=== PATIENT | female | born 1975 | race Caucasian/White ===

== ENCOUNTER 2017-08-04 08:59 | Emergency (ER) | payer BC, SELFPAY ==
[2017-08-04 09:07] VITALS: BP 136/88; PULSE 89; RESP 16; TEMP 36.6; O2SAT 98; BMI 28.3
--- NOTE | 2017-08-04 09:11 | XR_ITS ---
XR wrist LT 2V HISTORY: Posterior minute pain ITS.REASON: fall ORDERING PHYSICIAN: Tommy Wasserman MD PATIENT AGE: 41 years COMPARISON: None FINDINGS: No fracture or dislocation. No lytic or blastic change. There is normal mineralization.. The joint spaces are well-preserved. No significant degenerative/arthritic changes. No erosive changes evident.. IMPRESSION: Negative wrist
--- NOTE | 2017-08-04 09:12 | XR_ITS ---
XR hand LT 2V HISTORY: Posttraumatic pain ITS.REASON: fall ORDERING PHYSICIAN: Tommy Wasserman MD PATIENT AGE: 41 years COMPARISON: None FINDINGS: No fracture or dislocation. No lytic or blastic change. There is normal mineralization.. The joint spaces are well-preserved. No significant degenerative/arthritic changes. No erosive changes evident.. IMPRESSION: Negative, no acute finding
[2017-08-04 09:21] VITALS: BP 136/88; PULSE 104; RESP 16; TEMP 36.6; O2SAT 98; BMI 28.3
--- NOTE | 2017-08-04 09:53 | HMH.EDUTC ---
[facility] [place] Disposition Clinical Impression: Wrist pain Qualifiers: Laterality: left Qualified Code(s): M25.532 - Pain in left wrist Disposition: Home, Self-Care Condition on Discharge: Good Instructions: DI for Chronic Pain -- Adult, DI for Wrist Sprain, Wrist Sprain Additional Instructions: *RICE, Rest the extremity, Ice 15-20 minutes 3-4 times daily, Compress- wear the beny wrap as discussed as much as possible to help reduce swelling and pain, Elevate the extremity when at rest *Beny wrap is for support and help control swelling, use it except in the shower. Be sure that is not to tight but not to loose either *Elevate when resting *Ibuprofen 600-800mg every 6-8 hours as needed for pain an inflammation. If need something more can take Tylenol in between doses of Ibuprofen to help Immediately follow up for new or worsening of symptoms, or no noticeable improvement over the next 3-5 days Referrals: Kuldeep Holt MD [Staff Physician] - Ramy Rodrigez MD [Staff Physician] - Time of Disposition: 10:01 Medical Decision Making - Medical Records Medical records reviewed: Yes: I reviewed the patient's medical records. Vital Signs: 08/04/17 09:07 08/04/17 09:21 Temperature 97.9 F 97.9 F Temperature Source Oral Temporal Artery Scan Pulse Rate [Right Brachial] 89 104 H Respiratory Rate 16 16 Blood Pressure [Right Arm] 136/88 136/88 Blood Pressure Mean [Right Arm] 104 104 Blood Pressure Source [Right Arm] Automatic Cuff Manual Cuff/ Doppler Blood Pressure Position [Right Arm] Sitting Sitting 02 Sat by Pulse Oximetry 98 98 Oxygen Delivery Method Room Air Room Air - Syed Inquiry Pt receiving controlled substance: No Syed was queried for this patient: No [facility] [place] HPI - General Stated complaint: AO [id number] left hand and wrist Mode of Arrival: Family Vehicle Source of Information: Patient Limitations: No Limitations Description of Symptoms (Recalled from Triage Doc. by RN): pt states she fell on left hand while walking her dog outside. HEENT Symptoms (Recalled from RN notes): No Resp Symptoms (Recalled from RN notes): No Skin Symptoms (Recalled from RN notes): No MS Symptoms (Recalled from RN notes): Yes (fell on left hand) Functional Status (Recalled from RN notes): na - History of Present Illness Provider Complaint: State that she was taking her two dogs out on leash when one of the dogs pulled and she lost her balance and fell on the steps and she threw out her left hand to catch herself States that she is now haiving pain in her left wrist and thumb area States that she didn't hurt herself anywhere else just her left hand and wrist - Related Data Home Medications Medication Instructions Recorded Confirmed No Known Home Medications [No 08/04/17 08/04/17 Known Home Medications] Allergies Allergy/AdvReac Type Severity Reaction Status Date / Time No Known Allergies Allergy Verified 08/04/17 09:11 - Worker's Comp Is this a Worker's Comp case?: No [facility] History I have reviewed the patient's past medical history: Yes Medical History: Denies:: Cancer, Diabetes Mellitus Type 1, Diabetes Mellitus Type 2, MRSA Amputation: No Fractures: Yes (r collar bone) - Social History Educational Level: Completed High School Smoking Status: Never smoker Alcohol Intake: never - Psychiatric History Expresses thoughts of harming self/others: None Suicide Plan Description: No Plan ROS Obtained: Yes All systems reviewed & no additional complaints Physical Exam - General General appearance: alert, in no apparent distress - Respiratory Respiratory exam: Present: normal lung sounds bilaterally. Absent: respiratory distress - Cardiovascular Cardiovascular exam: Present: regular rate, normal rhythm. Absent: JVD - Extremities Exam Extremities exam: Present: normal inspection, tenderness, normal capillary refill. Absent: calf tenderness - Expanded Upper Extremity Exam Left Forearm/Wr
--- NOTE | 2017-08-04 09:56 | ED_ITS ---
[facility] [place] Disposition Clinical Impression: Wrist pain Qualifiers: Laterality: left Qualified Code(s): M25.532 - Pain in left wrist Disposition: Home, Self-Care Condition on Discharge: Good Instructions: DI for Chronic Pain -- Adult, DI for Wrist Sprain, Wrist Sprain Additional Instructions: *RICE, Rest the extremity, Ice 15-20 minutes 3-4 times daily, Compress- wear the beny wrap as discussed as much as possible to help reduce swelling and pain, Elevate the extremity when at rest *Beny wrap is for support and help control swelling, use it except in the shower. Be sure that is not to tight but not to loose either *Elevate when resting *Ibuprofen 600-800mg every 6-8 hours as needed for pain an inflammation. If need something more can take Tylenol in between doses of Ibuprofen to help Immediately follow up for new or worsening of symptoms, or no noticeable improvement over the next 3-5 days Referrals: Kuldeep Holt MD [Staff Physician] - Ramy Rodrigez MD [Staff Physician] - Time of Disposition: 10:01 Medical Decision Making - Medical Records Medical records reviewed: Yes: I reviewed the patient's medical records. Vital Signs: 08/04/17 09:07 08/04/17 09:21 Temperature 97.9 F 97.9 F Temperature Source Oral Temporal Artery Scan Pulse Rate [Right Brachial] 89 104 H Respiratory Rate 16 16 Blood Pressure [Right Arm] 136/88 136/88 Blood Pressure Mean [Right Arm] 104 104 Blood Pressure Source [Right Arm] Automatic Cuff Manual Cuff/ Doppler Blood Pressure Position [Right Arm] Sitting Sitting 02 Sat by Pulse Oximetry 98 98 Oxygen Delivery Method Room Air Room Air - Syed Inquiry Pt receiving controlled substance: No Syed was queried for this patient: No [facility] [place] HPI - General Stated complaint: AO [id number] left hand and wrist Mode of Arrival: Family Vehicle Source of Information: Patient Limitations: No Limitations Description of Symptoms (Recalled from Triage Doc. by RN): pt states she fell on left hand while walking her dog outside. HEENT Symptoms (Recalled from RN notes): No Resp Symptoms (Recalled from RN notes): No Skin Symptoms (Recalled from RN notes): No MS Symptoms (Recalled from RN notes): Yes (fell on left hand) Functional Status (Recalled from RN notes): na - History of Present Illness Provider Complaint: State that she was taking her two dogs out on leash when one of the dogs pulled and she lost her balance and fell on the steps and she threw out her left hand to catch herself States that she is now haiving pain in her left wrist and thumb area States that she didn't hurt herself anywhere else just her left hand and wrist - Related Data Home Medications Medication Instructions Recorded Confirmed No Known Home Medications [No 08/04/17 08/04/17 Known Home Medications] Allergies Allergy/AdvReac Type Severity Reaction Status Date / Time No Known Allergies Allergy Verified 08/04/17 09:11 - Worker's Comp Is this a Worker's Comp case?: No [facility] History I have reviewed the patient's past medical history: Yes Medical History: Denies:: Cancer, Diabetes Mellitus Type 1, Diabetes Mellitus Type 2, MRSA Amputation: No Fractures: Yes (r collar bone) - Social History Educational Level: Completed High School Smoking Status: Never smoker Alcohol Intake: never - Psychiatric History Expresses thoughts of harming self
[2017-08-04 10:07] VITALS: BP 127/77; PULSE 78; RESP 20; TEMP 36.7; O2SAT 99
== END 2017-08-04 10:08 | disposition home or self-care (01) ==
PROVIDERS: Emergency Provider Nurse Practitioner
DX: M25.532 Pain in left wrist (principal); W01.0XXA Fall on same level from slipping, tripping and stumbling without subsequent striking against object, initial encounter
CPT/HCPCS: 73100; 73120; 99202

== ENCOUNTER 2020-02-04 13:29 | Emergency (ER) | payer BC, SELFPAY ==
--- NOTE | 2020-02-04 13:54 | HMH.EDUTC ---
[facility] [place] Disposition Clinical Impression: Sinusitis Qualifiers: Sinusitis location: unspecified location Chronicity: acute Recurrence: non-recurrent Qualified Code(s): J01.90 - Acute sinusitis, unspecified Disposition: Home, Self-Care Condition on Discharge: Good Instructions: Sinusitis, DI for Sinusitis Additional Instructions: Drink plenty of fluids. Take tylenol for pain or fever. Take the medications as directed. Follow up with your regular doctor. GO TO THE ER FOR ANY WORSENING SYMPTOMS FOLLOW THE DIRECTIONS ON THE COVID-19 HAND OUT THAT WE GAVE YOU REGARDING SELF-ISOLATION UNTIL YOU KNOW YOUR COVID-19 RESULTS Prescriptions: Brompheniramine/Pseudoephed/Dm [Bromfed Dm Cough Syrup] 5 ml PO Q6HP PRN #240 syrup PRN Reason: Cough Transmission Status: Received by [facility] Amoxicillin/Potassium Clav [Augmentin 875-125 Tablet] 1 tab PO Q12H 10 Days #20 tab Transmission Status: Received by [facility] methylPREDNISolone [Medrol] 4 mg PO DIRECTED 6 Days #21 tab.ds.pk Transmission Status: Received by [facility] Referrals: Provider,Referral, [Primary Care Provider] - Forms: Work/School Release Time of Disposition: 14:09 Medical Decision Making - Medical Records Medical records reviewed: No: I reviewed the patient's medical records. - Syed Inquiry Pt receiving controlled substance: No Vital Signs: 02/04/20 13:57 02/04/20 14:12 Temperature 98.3 F 98.3 F Temperature Source Oral Pulse Rate 71 Pulse Rate [Right Brachial] 71 Respiratory Rate 20 20 Blood Pressure 142/97 H Blood Pressure [Right Arm] 142/97 H Blood Pressure Mean [Right Arm] 112 Blood Pressure Source [Right Arm] Automatic Cuff Blood Pressure Position [Right Arm] Sitting 02 Sat by Pulse Oximetry 99 Oxygen Delivery Method Room Air - Lab Data Lab Results 02/04/20 13:44: Influenza Type A Ag Negative, Influenza Type B Ag Negative 02/04/20 13:44: Strep Scn Rapid Clinic Negative 02/04/20 13:47: COVID-19 PCR Not detected Orders (Tests/Meds): ORDERS Category Date Time Status Strep Screen Confirmation Stat Micro 02/04/20 13:44 Received [facility] [place] HPI - General Stated complaint: fever, congestion, cough Time Seen by Provider: 02/04/20 13:54 - History of Present Illness Provider Complaint: She c/o 3 days of worsening sinus congestion. She started running a fever last night. She has a history of having sinus infections pretty frequently. - Related Data Home Medications Medication Instructions Recorded Confirmed Fexofenadine HCl [Delma 180 mg PO DAILY 02/04/20 02/04/20 Allergy] Fluticasone Propionate [Flonase 2 spr NS DAILY 02/04/20 02/04/20 50mcg nasal spray 16gm] Previous Rx's Medication Instructions Recorded Amoxicillin/Potassium Clav 1 tab PO Q12H 10 Days #20 tab 02/04/20 [Augmentin 875-125 Tablet] Brompheniramine/Pseudoephed/Dm 5 ml PO Q6HP PRN #240 syrup 02/04/20 [Bromfed Dm Cough Syrup] methylPREDNISolone [Medrol] 4 mg PO DIRECTED 6 Days #21 02/04/20 tab.ds.pk Allergies Allergy/AdvReac Type Severity Reaction Status Date / Time No Known Allergies Allergy Verified 08/04/17 09:11 [facility] History - Hepatitis A Screen Attestation statement:: This patient has been screened for Hepatitis A risk factors. I have reviewed the patient's past medical history: Yes Medical History: Denies:: Cancer, Diabetes Mellitus Type 1, Diabetes Mellitus Type 2, MRSA Amputation: No Fractures: Yes (r collar bone) - Social History Smoking Status: Never smoker Alcohol Intake: never Occupational Status: other ROS Obtained: Yes All systems reviewed & no additional complaints - Constitutional Constitutional: Reports chills, Denies fever(s), Reports poor appetite, Reports malaise - Eyes Eyes: Denies eye discharge - ENT Ears, Nose, Mouth, and Throat: Reports as per HPI Physical Exam - General General appearance: alert, in n
[2020-02-04 13:57] VITALS: BP 142/97; PULSE 71; RESP 20; TEMP 36.8; O2SAT 99; BMI 29.1
[2020-02-04 14:12] VITALS: BP 142/97; PULSE 71; RESP 20; TEMP 36.8; O2SAT 99
[2020-02-04 14:25] LABS: UTC Influenza A Antigen Negative (Negative); UTC Strep Screen (Rapid) Negative (Negative)
[2020-02-04 14:26] LABS: UTC Influenza B Antigen Negative (Negative)
[2020-02-05 17:27] LABS: Covid-19 Nasal PCR Sendout UK Not Detected
== END 2020-02-04 14:14 | disposition home or self-care (01) ==
PROVIDERS: Emergency Provider Nurse Practitioner Family
DX: J01.90 Acute sinusitis, unspecified (principal)
CPT/HCPCS: 87804; 87880; 99202; U0003; U0004

== ENCOUNTER 2021-02-04 05:52 | Emergency (ER) | payer BC, SELFPAY ==
[2021-02-04 06:04] VITALS: BP 175/120; PULSE 111; RESP 25; TEMP 36.6; O2SAT 100; BMI 30.7
--- NOTE | 2021-02-04 06:10 | ECG_ITS ---
APPROVED REPORT Exam: Resting ECG HR:94 bpm ECG Measurements Heart Rate 94 AXES UT 138 P 64 QRSd 66 QRS 13 QT 350 T 55 QTc 437 Conclusion Normal sinus rhythm Late R wave progression Abnormal ECG Electronically signed by : Hari Rousseau MD 02/05/2021 12:08:26
[2021-02-04 06:15] VITALS: BMI 27.3
--- NOTE | 2021-02-04 06:16 | CT_ITS ---
PROCEDURE INFORMATION: Exam: CTA Chest With Contrast Exam date and time: 02/04/2021 6:16 AM Age: 45 years old Clinical indication: Chest pressure and left-sided; Patient HX: Sudden onset lt sided chest pain radiating from back to chest; Additional info: Back pain radiating into chest TECHNIQUE: Imaging protocol: Computed tomographic angiography of the chest with contrast. 3D rendering (Not supervised by radiologist): MIP and/or 3D reconstructed images were created by the technologist. Radiation optimization: All CT scans at this facility use at least one of these dose optimization techniques: automated exposure control; mA and/or kV adjustment per patient size (includes targeted exams where dose is matched to clinical indication); or iterative reconstruction. Contrast material: ISO 370; Contrast volume: 70 ml; Contrast route: INTRAVENOUS (IV); COMPARISON: CR XR CHEST PORTABLE 02/04/2021 6:17 AM FINDINGS: Pulmonary arteries: Normal. No pulmonary emboli. Aorta: Unremarkable. No aortic aneurysm. No aortic dissection. Lungs: There are some patchy ground-glass opacities in the both lower lobes. There is no evidence of consolidation. Pleural spaces: There is no significant effusion or pneumothorax. Heart: Unremarkable. No cardiomegaly. No pericardial effusion. Lymph nodes: Unremarkable. No enlarged lymph nodes. Bones/joints: Unremarkable. No acute fracture. Soft tissues: Unremarkable. IMPRESSION: 1. No evidence of pulmonary thromboembolic disease. 2. Ground-glass opacities in both lower lobes as described. This may be seen with atypical pneumonia or with pulmonary edema. Clinical correlation is recommended.
--- NOTE | 2021-02-04 06:16 | XR_ITS ---
PROCEDURE INFORMATION: Exam: XR Chest Exam date and time: 02/04/2021 6:16 AM Age: 45 years old Clinical indication: Pain; Chest pressure; Additional info: Cp TECHNIQUE: Imaging protocol: XR of the chest. Views: 1 view. COMPARISON: No relevant prior studies available. FINDINGS: Lungs: No focal consolidation. Pleural spaces: No pleural effusion. No pneumothorax. Heart/Mediastinum: Unremarkable cardiomediastinal silhouette. Bones/joints: No acute osseous findings. IMPRESSION: No focal consolidation.
--- NOTE | 2021-02-04 06:21 | HMH.EDCP ---
ED Disposition Clinical Impression: Atypical chest pain Disposition: Home, Self-Care Condition on Discharge: Good Instructions: DI for Atypical Chest Pain Additional Instructions: use meds and see pcp for follow up Prescriptions: predniSONE [Prednisone 20mg Tab] 20 mg PO BID #10 tab Transmission Status: Pending to [facility] Ketorolac Tromethamine [Toradol 10mg tablet] 10 mg PO Q6HP PRN #10 tab MDD 40mg/day PRN Reason: Moderate To Severe Pain Transmission Status: Pending to [facility] Referrals: Geronimo Neves MD [Primary Care Provider] - - Critical Care Critical Care Time: No Attestation: On 02/04/21, the high probability of a clinically significant, sudden or life threatening deterioration of the following system(s) required my full and direct attention, intervention and personal management. The time I documented below is in addition to time spent performing reported procedures but includes the following listed in this critical care notation. Medical Decision Making - Medical Records Medical records reviewed: Yes: I reviewed the patient's medical records. - Syed Inquiry Pt receiving controlled substance: No Vital Signs: 02/04/21 06:04 Temperature 97.9 F Temperature Source Oral Pulse Rate [Right Brachial] 111 H Respiratory Rate 25 H Blood Pressure [Right Arm] 175/120 H Blood Pressure Mean [Right Arm] 138 Blood Pressure Source [Right Arm] Automatic Cuff Blood Pressure Position [Right Arm] Sitting 02 Sat by Pulse Oximetry 100 Oxygen Delivery Method Room Air - Lab Data Lab results reviewed: Yes: I reviewed the patient's lab results. Lab Results 02/04/21 06:06: WBC 7.4, RBC 5.02, Hgb 14.6, Hct 46.6, MCV 92.7, MCH 29.1, MCHC 31.3 L, RDW 13.3, Plt Count 273, MPV 9.0, Neut % (Auto) 70.6, Lymph % (Auto) 23.9, Pettis % (Auto) 4.3, Eos % (Auto) 0.9, Baso % (Auto) 0.4, Neut # (Auto) 5.2, Lymph # (Auto) 1.8, Pettis # (Auto) 0.3, Eos # (Auto) 0.1, Baso # (Auto) 0.0 02/04/21 06:06: Sodium 141, Potassium 3.7, Chloride 105, Carbon Dioxide 25, Anion Gap 14.7, BUN 7, Creatinine 0.80, Estimated Creat Clear 117, Estimated GFR 78, Est GFR ( Amer) 95, Glucose 125 H, Calcium 9.2, Total Bilirubin 0.2, AST 27, ALT 18, Alkaline Phosphatase 112, Troponin I < 0.01, C-Reactive Protein 6.3 H, Total Protein 7.9, Albumin 4.4, Globulin 3.5 H, Albumin/Globulin Ratio 1.3 02/04/21 06:06: ESR 15 02/04/21 06:06: Lipase 27, Procalcitonin 0.047 02/04/21 06:06: Serum HCG, Qual Negative 02/04/21 07:25: SARS-CoV-2 (PCR) Not detected, Influenza A Untype (PCR) Not detected, Influenza Type B (PCR) Not detected Result diagrams: 02/04/21 06:06 02/04/21 06:06 Orders (Tests/Meds): ED MEDICATIONS Discontinued Medications Generic Name Dose Route Start Last Admin Trade Name Freq PRN Reason Stop Dose Admin Iopamidol 70 ml 02/04/21 06:53 02/04/21 06:54 Iopamidol-370 (76%);100ml Bottle IV 02/04/21 06:54 70 ml ONCE ONE Administration Ketorolac Tromethamine 30 mg 02/04/21 08:25 Ketorolac 30mg/Ml Vial IV 02/04/21 08:26 ONCE ONE Methylprednisolone Sodium Succinate 125 mg 02/04/21 08:25 Methylprednisolone Sod Succ 125mg Vial IV 02/04/21 08:26 ONCE ONE Morphine Sulfate 4 mg 02/04/21 06:24 02/04/21 06:32 Morphine 4mg/Ml Syringe IV 02/04/21 06:25 4 mg ONCE ONE Administration Ondansetron HCl 4 mg 02/04/21 06:24 02/04/21 06:32 Ondansetron 4mg/2ml Vial IV 02/04/21 06:25 4 mg ONCE ONE Administration Sodium Chloride 50 ml 02/04/21 06:53 02/04/21 06:54 0.9 % Sodium Chloride 50 Ml Vial IV 02/04/21 06:54 50 ml ONCE ONE Administration Sodium Chloride 10 ml 02/04/21 06:53 02/04/21 06:54 Sodium Chloride 0.9% 10ml Syr (Rad Only) IV 02/04/21 06:54 10 ml ONCE ONE Administration ORDERS Category Date Time Status Troponin I Q3H Lab 02/04/21 09:30 Ordered Troponin I Q3H Lab 02/04/21 12:30 Ordered - Radiology Data
[2021-02-04 06:39] LABS: Basophils % 0.4 % (0.1-2.0); Eosinophils # 0.1 K/mm3 (0.0-0.4); Eosinophils % 0.9 % (0.1-12.0); Hematocrit 46.6 % (37.0-47.0); Hemoglobin 14.6 g/dL (12.2-16.2); Lymphocytes # 1.8 K/mm3 (0.7-4.5); Lymphocytes % 23.9 % (10-50); Mean Corpuscular HGB Conc 31.3 g/dL (31.8-35.4); Mean Corpuscular Hemoglobin 29.1 pg (27.0-31.2); Mean Corpuscular Volume 92.7 fl (81-99); Monocytes # 0.3 K/mm3 (0.1-1.0); Monocytes % 4.3 % (1.7-9.3); Neutrophils # 5.2 K/mm3 (1.8-7.8); Neutrophils % 70.6 % (37.0-80.0); Platelet Count 273 K/mm3 (142-424); Red Blood Count 5.02 M/mm3 (4.20-5.40); Red Cell Distribution Width 13.3 % (11.5-17.5); White Blood Count 7.4 K/mm3 (4.8-10.8)
[2021-02-04 06:50] LABS: Chloride 105 mmol/L (98-107); Potassium 3.7 mmoL/L (3.5-5.1); Sodium 141 mmol/L (136-145)
[2021-02-04 06:52] LABS: Blood Urea Nitrogen 7 mg/dl (7-17); Creatinine Clearance Estimated 117 mL/min (50-200); Estimated Glomerular Filt Rate 78 ml/min (>60); GFR (African American) 95 ML/MIN (>60)
[2021-02-04 06:53] LABS: Alanine Aminotransferase 18 U/L (12-78); Albumin Level 4.4 g/dl (3.5-5.0); Albumin/Globulin Ratio 1.3 (1.1-1.8); Alkaline Phosphatase 112 U/L (38-126); Anion Gap 14.7 mEq/L (5-15); Aspartate Amino Transferase 27 U/L (14-36); Bilirubin,Total 0.2 mg/dl (0.2-1.3); Calcium 9.2 mg/dl (8.4-10.2); Carbon Dioxide 25 mmol/L (22.0-30.0); Globulin 3.5 g/dL (1.3-3.2); Glucose 125 mg/dl (74-100); Total Protein,Serum 7.9 g/dl (6.3-8.2)
[2021-02-04 06:54] LABS: HCG Qualitative, Serum Negative (Negative)
[2021-02-04 06:58] LABS: C-Reactive Protein 6.3 mg/L (0-4); Lipase 27 U/L (23-300)
[2021-02-04 07:10] LABS: Erythrocyte Sedimentation Rate 15 mm/hr (0-20)
[2021-02-04 07:12] LABS: Troponin I < 0.01 ng/ml (0.00-0.034)
[2021-02-04 07:16] LABS: Procalcitonin 0.047 ng/mL (0.0-2.0)
[2021-02-04 07:37] LABS: Coronavirus 19, PCR Not Detected (NotDetected); Influenza A, PCR Not Detected (NotDetected); Influenza B, PCR Not Detected (NotDetected)
[2021-02-04 09:02] VITALS: BP 141/98; PULSE 73; RESP 16; TEMP 36.9; O2SAT 98
== END 2021-02-04 08:55 | disposition home or self-care (01) ==
PROVIDERS: Emergency Provider Emergency Medicine; PCP Family Medicine
DX: R07.89 Other chest pain (principal); Z87.891 Personal history of nicotine dependence
CPT/HCPCS: 71045; 71275; 80053; 83690; 84145; 84484; 84703; 85025; 85651; 86140; 93005; 96374; 96375; 99283; J2405; Q9967; U0003

== ENCOUNTER 2021-07-01 18:31 | Emergency (ER) | payer BC, SELFPAY ==
[2021-07-01 21:01] VITALS: BP 147/88; PULSE 101; RESP 18; TEMP 37.9; O2SAT 98; BMI 33.3
--- NOTE | 2021-07-01 21:02 | HMH.EDUTC ---
[facility] [place] Disposition Clinical Impression: Viral syndrome, Exposure to COVID-19 virus, Bronchitis Disposition: Home, Self-Care Condition on Discharge: Good Instructions: Preventing the Spread of Coronavirus Discharge Instructions, DI for COVID-19 (Suspected or Confirmed ), DI for Acute Bronchitis Additional Instructions: Drink plenty of fluids. Take tylenol or ibuprofen for pain or fever. Take the medications as directed. Follow up with your regular doctor. GO TO THE ER FOR ANY WORSENING SYMPTOMS Quarantine until you know the results of your covid-19 test. Notify your school or workplace of your results and follow their instructions regarding return to work/school. Prescriptions: Ondansetron [Zofran 4mg ODT] 4 mg PO Q8HP PRN #20 tab PRN Reason: Nausea Transmission Status: Pending to [facility] methylPREDNISolone [Medrol] 4 mg PO DIRECTED 6 Days #21 packet Transmission Status: Pending to [facility] Azithromycin [Z-Gordo 250mg Tab*] 250 mg PO UD DOSE PK #6 tab Transmission Status: Pending to [facility] Referrals: Geronimo Neves MD [Primary Care Provider] - Forms: Work/School Release Time of Disposition: 21:38 Medical Decision Making - Medical Records Medical records reviewed: No: I reviewed the patient's medical records. - Syed Inquiry Pt receiving controlled substance: No Vital Signs: 07/01/21 21:01 Temperature 100.3 F H Temperature Source Oral Pulse Rate [Right] 101 H Respiratory Rate 18 Blood Pressure [Right Arm] 147/88 H Blood Pressure Mean [Right Arm] 107 02 Sat by Pulse Oximetry 98 - Lab Data Lab results reviewed: Yes: I reviewed the patient's lab results. Lab Results 07/01/21 21:01: Group A Strep Rapid Negative 07/01/21 21:01: Influenza Type A Ag Negative, Influenza Type B Ag Negative Orders (Tests/Meds): ORDERS Category Date Time Status Covid-19 Nasal PCR ([facility]) Routine Lab 07/01/21 21:01 Received Strep Screen Confirmation Stat Micro 07/01/21 21:01 [facility] HPI - General Stated complaint: covid test cough, FELDER, runny nose Time Seen by Provider: 07/01/21 21:02 - History of Present Illness Provider Complaint: She states that for the past 1 day she has had a sore throat, chest congestion, body aches, and low grade fever. She has been vaccinated against covid-19. - Related Data Home Medications Medication Instructions Recorded Confirmed Fexofenadine HCl [Delma 180 mg PO DAILY 02/04/20 02/04/20 Allergy] Fluticasone Propionate [Flonase 2 spr NS DAILY 02/04/20 02/04/20 50mcg nasal spray 16gm] Previous Rx's Medication Instructions Recorded Amoxicillin/Potassium Clav 1 tab PO Q12H 10 Days #20 tab 02/04/20 [Augmentin 875-125 Tablet] Brompheniramine/Pseudoephed/Dm 5 ml PO Q6HP PRN #240 syrup 02/04/20 [Bromfed Dm Cough Syrup] methylPREDNISolone [Medrol] 4 mg PO DIRECTED 6 Days #21 02/04/20 tab.ds.pk Ketorolac Tromethamine [Toradol 10 mg PO Q6HP PRN #10 tab MDD 02/04/21 10mg tablet] 40mg/day predniSONE [Prednisone 20mg 20 mg PO BID #10 tab 02/04/21 Tab] Azithromycin [Z-Gordo 250mg Tab*] 250 mg PO UD DOSE PK #6 tab 07/01/21 Ondansetron [Zofran 4mg ODT] 4 mg PO Q8HP PRN #20 tab 07/01/21 methylPREDNISolone [Medrol] 4 mg PO DIRECTED 6 Days #21 07/01/21 packet Allergies Allergy/AdvReac Type Severity Reaction Status Date / Time No Known Allergies Allergy Verified 08/04/17 09:11 [facility] History - Hepatitis A Screen Attestation statement:: This patient has been screened for Hepatitis A risk factors. I have reviewed the patient's past medical history: Yes Medical History: Denies:: Cancer, Diabetes Mellitus Type 1, Diabetes Mellitus Type 2, MRSA Amputation: No Fractures: Yes (r collar bone) - Social History Smoking Status: Never smoker Alcohol Intake: never Occupational Status: other ROS Obtained: Yes All systems reviewed & no additional com
[2021-07-01 21:13] LABS: UTC Influenza A Antigen Negative (Negative)
[2021-07-01 21:14] LABS: UTC Influenza B Antigen Negative (Negative)
[2021-07-01 21:31] LABS: Strep Scrn Group A (Rapid) Negative (Negative)
[2021-07-01 21:48] VITALS: BP 147/88; PULSE 101; RESP 18; TEMP 37.9
== END 2021-07-01 21:49 | disposition home or self-care (01) ==
PROVIDERS: Emergency Provider Nurse Practitioner Family; PCP Family Medicine
DX: U07.1 COVID-19 (principal); J20.9 Acute bronchitis, unspecified
CPT/HCPCS: 87430; 87804; 99203; C9803; G0463; U0003; U0005